=== PATIENT | male | born 1985 | race African-American/Black ===

== ENCOUNTER 2023-07-19 12:40 | Emergency (ER) | payer OTHER, SELFPAY ==
[2023-07-19 13:00] VITALS: BP 158/111
--- NOTE | 2023-07-19 13:02 | ED.PDOC.TRB ---
ED Provider Triage
-
Patient seen by provider in Triage?: Seen in Triage
38-year-old male presenting to the ER for evaluation of chest discomfort that has been off and on since last night. States presently symptoms do seem to be a little bit improved. Last night he was having more tightness in the chest. No other
associated symptoms. Does note a history of hypertension and is hypertensive in triage. He reports good compliance with medications. No family history. No tobacco use. Denies any PE risk factors. Patient is otherwise stable. Will get an EKG
and lab work. He is otherwise stable for the waiting room pending EKG being completed
[2023-07-19 13:49] LABS: ALT (SGPT) 25 U/L (0-50); AST (SGOT) 29 U/L (17-59); Albumin 4.7 g/dl (3.5-5.0); Alkaline Phosphatase 82 U/L (38-126); Blood Urea Nitrogen 11 mg/dl (9-20); Calcium 9.4 mg/dl (8.4-10.2); Carbon Dioxide 25 mmol/L (22-30); Chloride 104 mmol/L (98-107); Glucose 93 mg/dl (70-99); Potassium 3.6 mmol/L (3.5-5.1); Sodium 140 mmol/L (135-145); Total Bilirubin 0.7 mg/dl (0.2-1.3); Total Protein 7.8 g/dl (6.3-8.2); eGFR > 60.00
[2023-07-19 14:00] LABS: Troponin I < 0.012 ng/ml
[2023-07-19 15:15] LABS: % Basophils 0.4 % (0-2); % Eosinophils 0.8 % (0-6); % Immature Granulocytes 0.2 % (0-0.5); % Lymphocytes 24.9 % (20.5-51.1); % Monocytes 4.6 % (1.7-9.3); % Neutrophils 69.1 % (42.2-75.2); Absolute Lymphocytes 1.2 10^3/uL (1.2-3.4); Absolute Monocytes 0.2 10^3/uL (0.1-0.6); Absolute Neutrophils 3.4 10^3/uL (1.4-6.5); Hematocrit 45.3 % (39.0-52.0); Hemoglobin 15.2 g/dL (13.0-18.0); Mean Corp Hgb Conc. 33.6 g/dL (33.0-37.0); Mean Corpuscular Volume 83.6 fL (80.0-94.0); Mean Platelet Volume 11.9 fL (7.4-10.4); Nucleated Red Blood Cells % 0 % (-); Platelet Count 203 10^3/uL (130-400); Red Blood Cell Count 5.42 10^6/uL (4.70-6.10); Red Cell Dist. Width 12.9 % (11.5-14.5)
--- NOTE | 2023-07-19 15:31 | ED.GENMED ---
History of Present Illness
<Wen Phillips PA-C - Last Filed: 07/19/23 23:42>
General
Chief Complaint: Chest Pain
Source: patient
Exam Limitations: none
Time Seen by Provider: 07/19/23 15:03
Nursing documentation reviewed up to this point in time: agreed with
Travel History
Have you had any contact with someone who has COVID-19?: No
Do you have any symptoms of coronavirus? Fever > 100 degrees, chills, cough, shortness of breath, sore throat, loss of taste or smell, muscle aches, or headache?: No
History of Present Illness
History of Present Illness:
Patient is a 38-year-old male with history hypertension presenting for evaluation of chest discomfort. Patient seen he initially noticed symptoms at approximately 11 PM last night while he was lying in bed awake. He describes a pressure type pain
in his left chest that lasts a few minutes. It is then followed by a numb/tingling sensation in his left upper arm which also lasted a few minutes. He states that he also had an episode of these symptoms earlier today which prompted him to come to
the emergency department for evaluation. Patient denies any associated shortness of breath, dizziness, nausea, vomiting, diaphoresis, back pain. Patient denies any exertional or pleuritic component to pain. Patient denies any recent
viruses/illnesses/cough. Patient does however endorse doing push-ups a few days ago and is wondering if he potentially strained a muscle.
Patient does report recently starting lisinopril 2.5 mg daily about 3 months ago for hypertension. This was prescribed by his primary care provider and he was supposed to follow-up with a commercial fisherman which she never did.
Patient denies any PE risk factors.
Patient denies any family history of CAD, ND, stroke.
Past History
<Wen Phillips PA-C - Last Filed: 07/19/23 23:42>
Past History
ED Past Medical History: None
ED Past Surgical History: Other (left inguinal hernia repair)
Social History
Tobacco: Non-smoker
Alcohol: None
Personal: Single
Living: alone
Employment: Employed
Family History
Family History: Diabetes
Review of Systems
<Wen Phillips PA-C - Last Filed: 07/19/23 23:42>
Review of Systems
Allergies reviewed?: Yes
All Other Systems: ROS reviewed and negative except as documented in HPI and ROS
Phy Exam
<Wen Phillips PA-C - Last Filed: 07/19/23 23:42>
Physical Exam
Physical Exam:
Vitals: Hypertensive, otherwise vital signs stable. Afebrile
General: Patient is well appearing, no acute distress
Skin: Warm and dry, no rashes or lesions
Head: Normocephalic, atraumatic
Eyes: Sclera nonicteric. EOMs intact. No nystagmus.
Throat: Protecting airway
Neck: Normal ROM, no cervical spine tenderness, no meningismus
Cardiac: Regular rate and rhythm, no murmurs. Point tender to palpation in the left mid chest without any crepitus, bruising, or bony deformity.
Pulm: Normal respiratory effort, no wheezes, rales, rhonchi heard on exam.
Abdomen: Abdomen soft. No abdominal tenderness.
Extremities: No evidence of cyanosis or edema. Good distal pulses
Neuro: AAOx3. CN II-XII intact. No focal neurologic deficits.
Psychiatric: Normal affect.
Scores
<Wen Phillips PA-C - Last Filed: 07/19/23 23:42>
Heart Score for Chest Pain Patients
STEMI patient?: No
History: Slightly or Non-Suspicious
ECG: Normal
Age: </= 45 years
Risk Factors: 1 or 2 Risk Factors
Troponin: </= Normal Limit
Heart Score for Chest Pain Patients: 1
Heart Score Risk: 2.5% MACE over next 6 weeks
PERC Rule Criteria
Age <50 years: Yes
HR <100 bpm: Yes
Room air oxygen sat >94%: Yes
History of DVT or PE: No
Recent trauma or surgery: No
Hemoptysis: No
Exogenous estrogen: No
Clinical signs suggestive of DVT: No
: No
Considered low risk for PE: No
PERC Score: 1
PE can be excluded by PERC: No
Course
<Wen Phillips PA-C - Last Filed: 07/19/23 23:42>
Orders/Labs/Results
Orders:
Orders
07/19/23 12:44
EKG [Electrocardiogram (*1)] Stat
Reason for Study: Chest Pain
EKG- Treatment ONCE
07/19/23 13:21
Complete Blood Count/With Diff Urgent
Comprehensive Metabolic Panel Urgent
Troponin I Urgent
07/19/23 15:37
CR Chest - 2 Views Urgent
Comment:
Reason For Exam: left chest pain
07/19/23 15:46
EKG- Treatment ONCE
07/19/23 16:20
Electrocardiogram (*1) Urgent
Reason for Study: Chest Pain
07/19/23 16:38
Troponin I Urgent
Abnormal Lab Results
07/19/23
13:21
MPV 11.9 H fL
(7.4-10.4)
07/19/23 13:21
07/19/23 13:21
Vital Signs
Initial and Last Documented VS:
Initial Vital Signs
Temp Pulse Resp BP Pulse Ox
98.2 F 91 18 158/111 98
07/19/23 13:00 07/19/23 13:00 07/19/23 13:00 07/19/23 13:00 07/19/23 13:00
Last Documented Vital Signs
Temp Pulse Resp BP Pulse Ox
98.2 F 91 18 133/91 98
07/19/23 13:00 07/19/23 13:00 07/19/23 13:00 07/19/23 16:50 07/19/23 13:00
<Te Hartley, DO - Last Filed: 07/19/23 15:49>
Orders/Labs/Results
Orders:
Orders
07/19/23 12:44
EKG [Electrocardiogram (*1)] Stat
Reason for Study: Chest Pain
EKG- Treatment ONCE
07/19/23 13:21
Complete Blood Count/With Diff Urgent
Comprehensive Metabolic Panel Urgent
Troponin I Urgent
07/19/23 15:37
CR Chest - 2 Views Urgent
Comment:
Reason For Exam: left chest pain
07/19/23 15:46
EKG- Treatment ONCE
07/19/23 16:20
Electrocardiogram (*1) Urgent
Reason for Study: Chest Pain
07/19/23 16:38
Troponin I Urgent
Abnormal Lab Results
07/19/23
13:21
MPV 11.9 H fL
(7.4-10.4)
07/19/23 13:21
07/19/23 13:21
Vital Signs
Initial and Last Documented VS:
Initial Vital Signs
Temp Pulse Resp BP Pulse Ox
98.2 F 91 18 158/111 98
07/19/23 13:00 07/19/23 13:00 07/19/23 13:00 07/19/23 13:00 07/19/23 13:00
Last Documented Vital Signs
Temp Pulse Resp BP Pulse Ox
98.2 F 91 18 133/91 98
07/19/23 13:00 07/19/23 13:00 07/19/23 13:00 07/19/23 16:50 07/19/23 13:00
<Wen Phillips PA-C - Last Filed: 07/19/23 23:42>
MDM/Problems Addressed
Differential Diagnosis Includes:
Not limited to: Muscular strain, costochondritis, pleurisy, pericarditis, myocarditis, doubt ACS
MDM/Problems Addressed:
38-year-old male with history hypertension presenting with intermittent chest discomfort and left arm tingling beginning last evening while lying in bed. Symptoms are intermittent, lasting a few minutes at a time. No exertional or pleuritic
component to pain. Symptoms occurred yesterday evening around 10 PM and then occurred again this morning around 11:30 AM. Patient hypertensive on arrival, otherwise vital signs stable. Physical exam as above. He is very well-appearing, in no
apparent distress. Heart regular rate and rhythm, lungs clear bilaterally. He does have a point area of tenderness on his left mid chest. Labs obtained in triage show no acute abnormalities. Initial troponin is negative. EKG shows normal sinus
rhythm without any signs of acute ischemic changes. Given point area of tenderness�will obtain chest x-ray. Given return of symptoms at 11:30 AM�will repeat troponin to ensure not trending upwards. Suspect likely muscular strain. Low suspicion
for ACS. Patient without any PE risk factors�ruled out with PERC criteria.
Chest x-ray shows no acute cardiopulmonary process. Repeat troponin is negative. Repeat blood pressure has decreased to 133/91. Patient has remained asymptomatic in the emergency department and is stable for discharge. Advised patient to
follow-up with primary care regarding hypertension and further management. Patient comfortable with plan. All questions answered.
Chronic conditions affecting care:
Hypertension
Acute Exacerbation and/or Progression of Chronic Illness:
Acutely hypertensive
<Wen Phillips PA-C - Last Filed: 07/19/23 23:42>
*Radiology
Radiology exam reviewed: preliminary read by ED provider and radiology read reviewed
*Pulse Oximetry
Patient hypoxic: no
*EKG
Interpreted by ED Provider?: Yes
EKG Intrepretation Date: 07/19/23
Interpretation: normal
Comparison EKG: changes noted
Heart Rate: 73
Rate: normal
Rhythm: sinus
Ischemia: non-specific ST changes
*Cardiovascular Specialist Interpretation
Rate: Cardiovascular Specialist- N/A
*Critical Care Note
Total Time (30-74mins, 75-104mins- exclusive of procedures): Not Applicable
ED Attending Note
<Wen Phillips PA-C - Last Filed: 07/19/23 23:42>
-
Portions of this chart may have been created with voice recognition software.� Occasional wrong word or��sound alike� substitutions may have occurred due to the inherent limitations of voice recognition software.
<Te Hartley DO - Last Filed: 07/19/23 15:49>
ED Attending Note
Patient seen and examined by attending physician: Yes
I performed a history and physical exam of patient and discussed management with resident, I reviewed resident's note and agree with documented findings and plan of care.: Yes
ED Attending Note:
I have reviewed and agree with patient treatment plan by Wen Phillips. My exam revealed 30-year-old male no acute distress. Lungs clear. S1-S2, no murmur. Point tenderness on left chest. Troponin negative.
Discharge Plan
Departure
Patient Disposition: Home (Routine Discharge)
Date of Disposition: 07/19/23
Time of Disposition: 17:15
Patient with high blood pressure during this ER visit?: Yes
Condition: Good
Covid-19: Not Applicable
Discharge Problem:
Chest pain
Instructions: High Blood Pressure ED, BLOOD PRESSURE, Chest Pain
Prescriptions:
No Action
ibuprofen 600 MG tablet
600 mg PO Q6HPRN PRN (Reason: pain) Qty: 30 0RF
Referrals:
Cassia Macias NUCLEAR SUPERVISING OPERATOR [Family Provider] -
Activity Restrictions/Additional Instructions:
RETURN TO THE EMERGENCY DEPARTMENT WITH ANY FEVERS, CHILLS, WORSENING CHEST PAIN OR CHEST PAIN ASSOCIATED WITH EXERTION OR SHORTNESS OF BREATH, OR ANY OTHER CONCERNS
-You can take Motrin/Tylenol as needed for discomfort.
-You should follow-up with your primary care provider for further evaluation and management of high blood pressure. Monitor your symptoms closely and return to the emergency department any acute worsening or new symptoms.
Interventions
Interventions:
*ED COVID-19 Vaccine History Last Done: 07/19/23 13:00
*Nursing Disposition Last Done: 07/19/23 17:22
ED- Cardiac Assessment Last Done: 07/19/23 15:57
Discharge Date and Time
Discharge Date/Time: 07/19/23 17:23
Print Language: SPANISH
[2023-07-19 16:50] VITALS: BP 133/91
[2023-07-19 17:11] LABS: Troponin I < 0.012 ng/ml
== END 2023-07-19 17:23 | disposition home or self-care (01) ==
LOC: EMR 12:40
PROVIDERS: Physician Assistant; Physician Assistant Medical; EMERGENCY PHYSICIAN Emergency Medicine; FAMILY PHYSICIAN Nurse Practitioner Adult Health
DX: R07.89 Other chest pain (principal)
CPT/HCPCS: 99283; 71046; 80053; 84484; 85025; 93005

== ENCOUNTER 2023-07-20 16:08 | Emergency (ER) | payer OTHER, SELFPAY ==
[2023-07-20 16:11] VITALS: BP 147/113
[2023-07-20 16:37] LABS: % Basophils 0.2 % (0-2); % Eosinophils 0.9 % (0-6); % Immature Granulocytes 0.2 % (0-0.5); % Lymphocytes 18.8 % (20.5-51.1); % Monocytes 4.7 % (1.7-9.3); % Neutrophils 75.2 % (42.2-75.2); Absolute Eosinophils 0.1 10^3/uL (0-0.7); Absolute Monocytes 0.3 10^3/uL (0.1-0.6); Hematocrit 46.4 % (39.0-52.0); Hemoglobin 15.9 g/dL (13.0-18.0); Mean Corp Hgb Conc. 34.3 g/dL (33.0-37.0); Mean Corpuscular Hgb 28.5 pg (27.0-31.0); Mean Corpuscular Volume 83.2 fL (80.0-94.0); Mean Platelet Volume 10.3 fL (7.4-10.4); Nucleated Red Blood Cells % 0 % (-); Platelet Count 232 10^3/uL (130-400); Red Blood Cell Count 5.58 10^6/uL (4.70-6.10); Red Cell Dist. Width 12.8 % (11.5-14.5); White Blood Cell Count 5.4 10^3/uL (4.8-10.8)
[2023-07-20 16:50] LABS: ALT (SGPT) 26 U/L (0-50); AST (SGOT) 30 U/L (17-59); Alkaline Phosphatase 82 U/L (38-126); Blood Urea Nitrogen 18 mg/dl (9-20); Calcium 9.4 mg/dl (8.4-10.2); Carbon Dioxide 27 mmol/L (22-30); Chloride 106 mmol/L (98-107); Glucose 95 mg/dl (70-99); Sodium 143 mmol/L (135-145); Total Bilirubin 0.5 mg/dl (0.2-1.3); Total Protein 8.2 g/dl (6.3-8.2); eGFR > 60.00
[2023-07-20 17:03] LABS: Troponin I < 0.012 ng/ml
--- NOTE | 2023-07-20 18:10 | ED.GENMED ---
History of Present Illness
<Wen Phillips PA-C - Last Filed: 07/21/23 00:07>
General
Chief Complaint: Numbness
Source: patient
Exam Limitations: none
Time Seen by Provider: 07/20/23 17:42
Nursing documentation reviewed up to this point in time: agreed with
Travel History
Have you had any contact with someone who has COVID-19?: No
Do you have any symptoms of coronavirus? Fever > 100 degrees, chills, cough, shortness of breath, sore throat, loss of taste or smell, muscle aches, or headache?: No
History of Present Illness
History of Present Illness:
Patient is a 38-year-old male with history hypertension presenting for evaluation of left arm numbness. Patient seen in emergency department yesterday with similar complaint and negative cardiac workup. Patient states that symptoms returned today
around 330 while he was sitting at work talking to his coworkers. He reports a numbness in his left anterior upper arm. He denies any radiation down his to his fingers. He has noticed some very mild chest discomfort intermittently over the past
few days which prompted ER visit yesterday, although denies any true chest pain. Patient denies any shortness of breath, nausea, dizziness, back pain, diaphoresis. There is no pleuritic or exertional component to pain.
Patient was seen by an urgent care earlier for arm numbness and given his high blood pressure and associated mild chest discomfort was sent to the emergency department for evaluation.
Patient does endorse recently boxing/wrestling with his son and is wondering if he pulled a muscle in his neck/chest.
Past History
<Wen Phillips PA-C - Last Filed: 07/21/23 00:07>
Past History
ED Past Medical History: None
ED Past Surgical History: Other (left inguinal hernia repair)
Social History
Tobacco: Non-smoker
Alcohol: None
Personal: Single
Living: alone
Employment: Employed
Family History
Family History: Diabetes
Review of Systems
<Wen Phillips PA-C - Last Filed: 07/21/23 00:07>
Review of Systems
Allergies reviewed?: Yes
All Other Systems: ROS reviewed and negative except as documented in HPI and ROS
Phy Exam
<Wen Phillips PA-C - Last Filed: 07/21/23 00:07>
Physical Exam
Physical Exam:
Vitals: Hypertensive, otherwise vital signs stable. Afebrile
General: Patient is well appearing, no acute distress. Nontoxic-appearing
Skin: Warm and dry, no rashes or lesions
Head: Normocephalic, atraumatic
Eyes: Sclera nonicteric. EOMs intact. No nystagmus.
Throat: Protecting airway
Neck: Normal ROM, no cervical spine tenderness, no meningismus
Cardiac: Regular rate and rhythm, no murmurs. Point tenderness on the left anterior chest wall.
Pulm: Normal respiratory effort, no wheezes, rales, rhonchi heard on exam.
Abdomen: Abdomen soft. No abdominal tenderness.
Extremities: No bony tenderness to left upper extremity. Very mild tenderness to left upper trapezius. Distal pulses strong and equal in bilateral upper and lower extremities. Full range of motion in left upper extremity.
Neuro: AAOx3. CN II-XII intact. No focal neurologic deficits.
Psychiatric: Normal affect.
Course
<Wen Phillips PA-C - Last Filed: 07/21/23 00:07>
Orders/Labs/Results
Orders:
Orders
07/20/23 16:16
Electrocardiogram (*1) Urgent
Reason for Study: Chest Pain
EKG- Treatment ONCE
07/20/23 16:29
Complete Blood Count/With Diff Urgent
Comprehensive Metabolic Panel Urgent
Troponin I Urgent
Abnormal Lab Results
07/20/23
16:29
Absolute Lymphs (auto) 1.0 L 10^3/uL
(1.2-3.4)
Lymphocytes % 18.8 L %
(20.5-51.1)
07/20/23 16:29
07/20/23 16:29
Vital Signs
Initial and Last Documented VS:
Initial Vital Signs
Pulse Resp BP Pulse Ox
97 20 147/113 98
07/20/23 16:11 07/20/23 16:11 07/20/23 16:11 07/20/23 16:11
Last Documented Vital Signs
Pulse Resp BP Pulse Ox
88 18 153/93 99
07/20/23 18:24 07/20/23 18:24 07/20/23 18:24 07/20/23 18:24
<Te Hartley, DO - Last Filed: 07/20/23 18:29>
Orders/Labs/Results
Orders:
Orders
07/20/23 16:16
Electrocardiogram (*1) Urgent
Reason for Study: Chest Pain
EKG- Treatment ONCE
07/20/23 16:29
Complete Blood Count/With Diff Urgent
Comprehensive Metabolic Panel Urgent
Troponin I Urgent
Abnormal Lab Results
07/20/23
16:29
Absolute Lymphs (auto) 1.0 L 10^3/uL
(1.2-3.4)
Lymphocytes % 18.8 L %
(20.5-51.1)
07/20/23 16:29
07/20/23 16:29
Vital Signs
Initial and Last Documented VS:
Initial Vital Signs
Pulse Resp BP Pulse Ox
97 20 147/113 98
07/20/23 16:11 07/20/23 16:11 07/20/23 16:11 06/07/24 16:11
Last Documented Vital Signs
Pulse Resp BP Pulse Ox
88 18 153/93 99
07/20/23 18:24 07/20/23 18:24 07/20/23 18:24 07/20/23 18:24
<Wen Phillips PA-C - Last Filed: 07/21/23 00:07>
MDM/Problems Addressed
Differential Diagnosis Includes:
Not limited to: Muscular strain, cervical radiculopathy, peripheral neuropathy, do not suspect ACS or CVA
MDM/Problems Addressed:
Patient is a 38-year-old male with history hypertension presenting for evaluation of left arm numbness. Patient with similar symptoms yesterday and negative cardiac workup while in emergency department. Describes a numbness in his left anterior
upper arm. No associated shortness of breath, back pain, chest pain, dizziness, nausea. Labs obtained in triage without any clinically significant abnormalities. Troponin is negative. EKG reviewed. Normal sinus rhythm without any acute signs of
ischemia�unchanged from EKG yesterday. Patient is hypertensive on arrival, otherwise vital signs stable. He is very well-appearing, in no apparent distress. He does have some tenderness to upper trapezius. Mild point tenderness in left anterior
chest wall. Great distal pulses. Sensation fully intact. No focal neurologic deficits.
Symptoms most consistent with a peripheral neuropathy. Do not suspect ACS or CVA. Will treat with Neurontin and have patient follow-up with orthospine specialist if symptoms persist. Otherwise, he is stable for discharge. Blood pressure has
decreased in emergency department to 153/93. Patient will follow-up with primary care regarding hypertension and escalation in treatment. Return precautions discussed at length. Patient comfortable with plan. All questions answered
Chronic conditions affecting care:
Hypertension
Acute Exacerbation and/or Progression of Chronic Illness:
Acutely hypertensive
<Wen Phillips PA-C - Last Filed: 07/21/23 00:07>
*Pulse Oximetry
Patient hypoxic: no
*EKG
Interpreted by ED Provider?: Yes
EKG Intrepretation Date: 07/21/23
Interpretation: normal
Comparison EKG: no changes
Heart Rate: 90
Rate: normal
Rhythm: sinus
Inman: normal axis
QRS Pattern: normal QRS
Ischemia: no ischemia
*Supervisor [employer] Interpretation
Rate: Supervisor [employer]- N/A
*Critical Care Note
Total Time (30-74mins, 75-104mins- exclusive of procedures): Not Applicable
Data Reviewed
Further Testing Considered But Not Given:
Consider x-ray�but do not suspect bony abnormality in neck and shoulder
<Wen Phillips PA-C - Last Filed: 07/21/23 00:07>
Patient Management
Escalation/DeEscalation of care consider admission/obs:
Admit not indicated
ED Attending Note
<Wen Phillips PA-C - Last Filed: 07/21/23 00:07>
-
Portions of this chart may have been created with voice recognition software.� Occasional wrong word or��sound alike� substitutions may have occurred due to the inherent limitations of voice recognition software.
<Te Hartley, - Last Filed: 07/20/23 18:29>
ED Attending Note
Patient seen and examined by attending physician: Yes
I performed a history and physical exam of patient and discussed management with resident, I reviewed resident's note and agree with documented findings and plan of care.: Yes
ED Attending Note:
I have reviewed and agree with history and treatment plan by Wen Phillips. Suspect patient has peripheral neuropathy. Do not suspect CVA or ACS. Patient stable for discharge. Will discharge to follow-up with orthopedics. Treat with Neurontin.
Discharge Plan
Departure
Patient Disposition: Home (Routine Discharge)
Date of Disposition: 07/20/23
Time of Disposition: 18:17
Patient with high blood pressure during this ER visit?: Yes
Condition: Good
Covid-19: Not Applicable
Discharge Problem:
Left upper extremity numbness
Instructions: Radiculopathy (DC), BLOOD PRESSURE
Prescriptions:
New
gabapentin 300 mg capsule
300 mg PO HS Qty: 30 0RF
No Action
ibuprofen 600 MG tablet
600 mg PO Q6HPRN PRN (Reason: pain) Qty: 30 0RF
Referrals:
Uche Aguero DO [Active] - Call in 1-3 days for appt
Rosalia Sidhu PA [Family Provider] -
Activity Restrictions/Additional Instructions:
RETURN TO THE EMERGENCY DEPARTMENT WITH ANY FEVERS, CHILLS, CHEST PAIN, SHORTNESS OF BREATH, WORSENING IN CURRENT SYMPTOMS, OR ANY OTHER CONCERNS
-A prescription for gabapentin has been sent to your pharmacy. You can take this nightly. This may help with nerve related pain.
-You should follow-up with spine surgeon for further evaluation/management of arm numbness.
-As discussed�you should ensure to follow-up with your primary care provider for further evaluation/management of your high blood pressure.
Interventions
Interventions:
*Risk Screen - Suicide Last Done: 07/20/23 16:11
*General Assessment Last Done: 07/20/23 16:11
*Neglect/Abuse Screening Last Done: 07/20/23 16:11
ED- Fall Risk Assessment Last Done: 07/20/23 18:24
*ED COVID-19 Vaccine History Last Done: 07/20/23 18:06
*Nursing Disposition Last Done: 07/20/23 18:24
ED- Cardiac Assessment Last Done: 07/20/23 18:06
ED- Neurological Assessment Last Done: 07/20/23 18:06
Discharge Date and Time
Discharge Date/Time: 07/20/23 18:25
Print Language: GREENLANDIC
[2023-07-20 18:24] VITALS: BP 153/93
== END 2023-07-20 18:25 | disposition home or self-care (01) ==
LOC: EMR 16:08
PROVIDERS: EMERGENCY PHYSICIAN Emergency Medicine; FAMILY PHYSICIAN Family Medicine
DX: R20.0 Anesthesia of skin (principal); R07.89 Other chest pain; I10 Essential (primary) hypertension
CPT/HCPCS: 99283; 80053; 84484; 85025; 93005

== ENCOUNTER → 2024-07-18 12:17 | Outpatient (REF) | payer OTHER, SELFPAY | LOC: RAD 12:17 | PROVIDERS: ATTENDING PHYSICIAN Family Medicine | DX: M25.519 Pain in unspecified shoulder (principal) | CPT/HCPCS: 73030 ==